=== PATIENT | male | born 2000 | race Two or more races ===

== ENCOUNTER 2021-09-19 17:04 | Emergency (ER) | payer OTHER, BC ==
[~2021-09-19] VITALS: Ht 175.3 cm; Wt 90.7 kg
[2021-09-19] MEDS ORDERED: IBU800 MG PO (19:23)
[2021-09-19] MEDS ORDERED: CYCL10 PO (19:23)
== END 2021-09-19 19:31 | disposition home or self-care (01) ==
LOC: ER 17:04
DX: R07.81 Pleurodynia (principal); M54.50 Low back pain, unspecified; M79.644 Pain in right finger(s); R42 Dizziness and giddiness; R11.0 Nausea; F17.200 Nicotine dependence, unspecified, uncomplicated; V49.9XXA Car occupant (driver) (passenger) injured in unspecified traffic accident, initial encounter; Y92.411 Interstate highway as the place of occurrence of the external cause; Z79.899 Other long term (current) drug therapy
CPT/HCPCS: 71046; 72040; 72100; 73130; A9270

== ENCOUNTER → 2022-09-19 | Outpatient (CLI) | payer BC ==
[~2022-09-19] MED LIST: CYCL10 PO; IBU800 MG PO
[2022-09-21 04:29] LABS: CHLAMYDIA TRACHOMATIS, NAA Negative (Negative)
== END | disposition home or self-care (01) ==
LOC: LAB 14:50 → LAB SHORT 14:50
PROVIDERS: Physician Assistant
DX: A63.0 Anogenital (venereal) warts (principal)
CPT/HCPCS: 87086; 87491; 87591